=== PATIENT | female | born 1975 | race Caucasian/White ===

== ENCOUNTER 2017-01-06 05:10 | Day surgery (SDC) | payer BC ==
[2017-01-05 10:54] LABS: HEMOGLOBIN 14.9 g/dL (12-16); MCHC 33.9 g/dL (31.0-37.0); MCV 94.4 fL (80.0-100.0); MEAN PLATELET VOLUME 9.7 fL (7.4-10.4); RBC 4.66 10x6/uL (4.00-5.40); RDW 13.6 % (11.5-14.5); WBC 11.8 10x3/uL (4.8-10.8)
[~2017-01-06] VITALS: Ht 162.6 cm; Wt 102.1 kg
--- NOTE | ~2017-01-06 | OP ---
PATIENT NAME: COURTNEY BARBER MEDICAL RECORD: [id number] :77 LOCATION:[facility] ADMISSION DATE: SURGEON: DOLORES ROSS DATE OF OPERATION: 01/06/2017 SURGEON: Dolores Ross DPM. PREOPERATIVE DIAGNOSIS: Plantar fibroma on the left foot. POSTOPERATIVE DIAGNOSIS: Plantar fibroma on the left foot. PROCEDURE: Excision of plantar fibroma, left foot. ANESTHESIA: General. HEMOSTASIS: Pneumatic ankle tourniquet inflated to 250 mmHg on the well-padded left ankle. ESTIMATED BLOOD LOSS: Minimal. MATERIALS: A 3-0 Vicryl, 4-0 nylon. INJECTABLES: A 20 cc of 0.25% Marcaine plain. The patient has longstanding history of pain associated with plantar fibroma on the left foot. She has tried offloading and insoles to no avail. She continues to have pain with the area. She is here today for excision of the mass. We discussed the risks and benefits of the procedures, complications were reviewed. Her questions were answered. She was appropriately consented for the above-mentioned procedure. She does have crutches to help offload the area postoperatively. The patient was brought in the operating room and placed on the operating table in supine position. A timeout was called with Dr. Ross, who identified the patient, the surgical site, and the surgery to be performed. Once appropriate anesthesia was obtained, the foot was prepped and draped in the usual aseptic manner. The pneumatic ankle tourniquet was inflated to 250 mmHg on the well-padded left ankle. Attention was directed to the plantar aspect to the left foot where a hard mass consists with plantar fibroma was identified. Next, an 8 cm Lazy-S incision was made directly over the plantar fibroma. This incision was carried deep to the soft tissue with care being taken to retract any vital neurovascular structures. All bleeders were cauterized along the way. The plantar fibroma was readily identified. Next, utilizing a fresh 15-blade, the plantar fibroma and a fresh margin of healthy plantar fascia was excised from the foot. The surgical site was then irrigated with copious amounts of normal sterile saline via bulb syringe. The surgical site was then investigated for any remaining pathological tissue and none was noted. The surgical site was then ____ with copious amounts of normal sterile saline via bulb syringe. A Steve drain was then placed in the surgical site. The subQ was then reapproximated and coapted using 3-0 Vicryl. The skin was then reapproximated OPERATIVE REPORT [id number] COURTNEY BARBER and coapted using 4-0 nylon. A dressing consisting of Xeroform, 4 x 4's, Kerlix, and an Star bandage was applied to the left foot. The patient tolerated the procedure and anesthesia well. She left the operating room with vital signs stable and capillary refill time intact. The patient was discharged home with instructions to ice and elevate the left foot. She is to be completely nonweightbearing, utilizing crutches to keep weight off the foot. She has my cell phone number for any after-hour difficulties. The plantar fibroma was sent to pathology. There were no complications at this procedure. TRANSINT:[id number] Voice Confirmation ID: [id number] DOCUMENT ID: [id number] DOLORES ROSS CC: [id number] DICTATION DATE: 01/06/171649 PREP MANAGER: 01/06/172121 [facility] 01/06/17 [facility] [address] [place] [address]
[2017-01-06 12:08] LABS: HCG URINE NEGATIVE (NEGATIVE)
[2017-01-06 12:14] VITALS: BP 101/65; Ht 162.6 cm; Wt 102.1 kg
== END 2017-01-06 17:10 | disposition home or self-care (01) ==
LOC: D.OPS 05:10 → D.PAN 12:45 → D.OPS 12:45
PROVIDERS: Anesthesiology; Podiatrist
DX: D36.7 Benign neoplasm of other specified sites (principal); F17.200 Nicotine dependence, unspecified, uncomplicated; E66.9 Obesity, unspecified; Z68.38 Body mass index [BMI] 38.0-38.9, adult